=== PATIENT | male | born 1995 ===

== ENCOUNTER → 2023-04-04 | Outpatient (CLI) | payer BC | LOC: M WUC 13:22 | PROVIDERS: ATTEND Physician Assistant | DX: S46.011A Strain of muscle(s) and tendon(s) of the rotator cuff of right shoulder, initial encounter (principal); W18.30XA Fall on same level, unspecified, initial encounter; Y92.009 Unspecified place in unspecified non-institutional (private) residence as the place of occurrence of the external cause ==